=== PATIENT | female | born 1975 | race Caucasian/White ===

== ENCOUNTER 2020-03-22 16:42 | Emergency (ER) | payer MEDICAID ==
[2020-03-22] MEDS ORDERED: Aspirin 81 MG Tab.Chew PO ONE (18:38)
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
[2020-03-22 19:48] VITALS: BP 154/73; PULSE 99
--- NOTE | 2020-03-25 09:29 | CR ---
CHEST: 2 view CLINICAL HISTORY:Tachycardia COMPARISON:None FINDINGS: The heart size, pulmonary vascularity and hilar structures are normal. No infiltrate effusion or pneumothorax is seen. IMPRESSION: No acute cardiopulmonary process.
== END 2020-03-22 20:05 | disposition home or self-care (01) ==
LOC: JP.ED 16:42
DX: K21.9 Gastro-esophageal reflux disease without esophagitis (principal); N28.9 Disorder of kidney and ureter, unspecified; E86.0 Dehydration; F17.210 Nicotine dependence, cigarettes, uncomplicated; J45.909 Unspecified asthma, uncomplicated; I10 Essential (primary) hypertension; E66.9 Obesity, unspecified; Z79.82 Long term (current) use of aspirin; Z79.899 Other long term (current) drug therapy; Z68.32 Body mass index [BMI] 32.0-32.9, adult
CPT/HCPCS: 36415; 71046; 80053; 81001; 83880; 84443; 84484; 85025; 93005; 99285; A9270; 93010